=== PATIENT | female | born 1960 | race Caucasian/White ===

== ENCOUNTER 2019-07-29 23:05 | Emergency (ER) | payer BC ==
--- OUTSIDE RECORDS SUMMARY | 2019-07-29 23:09 | XMS REPORT ---
:1960 Author Organization [facility] Address [address] [place] [address] Care Team Providers Name Role Phone Unavailable Unavailable Unavailable Payers Payer Name Policy Type Policy Number Effective Date Expiration Date Problems This patient has no known problems. Allergies, Adverse Reactions, Alerts Allergy Name Allergy Status Severity Reaction(s) Onset Inactive Treating Comments Type Date Date Clinician clavulanic DA Active RI 2019-04 00:00:0 0 amoxicillin DA Active RI 2019-04 00:00:0 0 clavulanic DA Active 2018-12 00:00:0 0 amoxicillin DA Active 2018-12 00:00:0 0 clavulanic DA Active RI 2018-08 00:00:0 0 amoxicillin DA Active RI 2018-08 00:00:0 0 clavulanic DA Active RI 2018-05 00:00:0 0 amoxicillin DA Active RI 2018-05 00:00:0 0 clavulanic DA Active RI 2018-04 00:00:0 0 amoxicillin DA Active RI 2018-04 00:00:0 0 clavulanic DA Active RI 2018-01 00:00:0 0 amoxicillin DA Active RI 2018-01 00:00:0 0 AUGMENTIN DA Active U 2003-10 00:00:0 0 No Known DA Active U 2003-10 Contrast Allergies 00:00:0 0 No Known Food DA Active U 2003-10 Allergies - 00:00:0 0 No Known DA Active U 2003-10 Other -22 Allergies 00:00:0 0 clavulanic DA Active U 2002-07 acid 00:00:0 0 amoxicillin DA Active U 2002-07 00:00:0 0 Medications This patient has no known medications. Results Test Description Test Time Test Comments Text Results Atomic Results Result Comments - XR FLUORO FOR SPINE 2019-05-12 11:01:00 Patient Name: MARCO A HANKINS INJ Unit No: [id number] EXAMS: CPT CODE: [id number] XR FLUORO FOR SPINE INJ 21145 LUMBAR TRANSFORAMINAL INJECTION REFERRING PHYSICIAN: PREOPERATIVE DIAGNOSIS: Degenerative Lumbar Disc Disease. POSTOPERATIVE DIAGNOSIS: Lumbar radiculopathy PROCEDURES PERFORMED 1. Fluoroscopically guided needle localization of the bilateral L4, bilateral L5, bilateral S1 spinal nerve/nerves with transforaminal epidural steroid injection/injections. 2. Transforaminal epidurogram/epidurograms at bilateral L4, bilateral L5, bilateral S1. FINDINGS: Poor filling all. Concordant provocation left L5 hip. Pain relief-100%. ANTIBIOTIC: Cefazolin ESTIMATED BLOOD LOSS: Minimal ANESTHESIA: (TIVA )Total intravenous anesthetic (patient intolerant to sedatives and hypnotics) COMPLICATIONS: None DETAILS OF PROCEDURE: After obtaining stable vital signs, informed consent and IV access, with no known contraindications to proceeding, the patient was taken to the fluoroscopy suite and placed in a prone position with all extremities padded and appropriate monitors placed. A sterile prep and drape was performed over the lumbosacral spine. Using fluoroscopic visualization at each level the insertion site was marked for a paravertebral approach to the foramen. Using standard technique, a 25 gauge needle was advanced to the base of the pedicle. In AP view, final positioning was obtained outside the 6 on the clock position on the pedicle. Then, 1 ml of Isovue-300 contrast was injected to produce the epidurograms. No paresthesias were elicited with needle insertion or injection and there were no signs of intravascular or intrathecal uptake. Then, with 1 ml of 4% lidocaine and 10 mg of triamcinolone was injected incrementally with frequent negative aspirations. There were no signs of intravascular or intrathecal uptake. Each subsequent level was done using the same technique and medications. The patient's vital signs remained stable. The patient was taken to the PACU in good condition. at 1101 Reported and signed by: Oracio Boyce M.D. [facility] NAME: MARCO A HANKINS [address] [facility] PHYS: Oracio Javier MD [place] [address] : 1960 AGE: 58 SEX: F LOC: VINCENT PHONE #: [phone] EXAM DATE: 05/12/2019 STATUS: REG SD FAX #: [phone] RAD #: D/C DT PAGE 1 Signed Report (CONTINUED) Patient Name: MARCO A HANKINS Unit No: [id number] EXAMS: CPT CODE: [id number] XR FLUORO FOR SPINE INJ 68893 <Continued> CC: Technologist: Estefania Hall(R) Transcribed D/ (1101) Nai [facility] NAME: MARCO A HANKINS [address] [facility] PHYS: Oracio Javier MD [place] [address] : 1960 AGE: 58 SEX: F LOC: VINCENT PHONE #: [phone] EXAM DATE: 05/12/2019 STATUS: REG SD FAX #: [phone] RAD #: D/C DT PAGE 2 Signed Report Patient Name: MARCO A HANKINS Unit No: [id number] EXAMS: CPT CODE: [id number] XR FLUORO FOR SPINE INJ 03868 <Continued> Orig Print D/T: S: 05/12/2019 (1104) [facility] NAME: MARCO A HANKINS [address] [facility] PHYS: Oracio Javier MD [place] [address] : 1960 AGE: 58 SEX: F LOC: VINCENT PHONE #: [phone] EXAM DATE: 05/12/2019 STATUS: REG SD FAX #: [phone] RAD #: D/C DT PAGE 3 Signed Report - XR SPINE 1 V SPEC 2019-01-17 11:45:00 Patient Name: MARCO A HANKINS LEVEL Unit No: [id number] EXAMS: CPT CODE: [id number] XR SPINE 1 V SPEC LEVEL 84874 INTRAOPERATIVE LATERAL CERVICAL SPINE Film 1. A screw has been placed anteriorly within C6. Film 2. Screws are present anteriorly within C6 and C7. Film 3. Again noted are screws in C6 and C7. Film 4. Anterior fusion has been performed from C5 to C7. at 1145 Reported and signed by: Feliz Jose MD CC: Abdirizak Valadez M.D. Technologist: TERE BUCIO RT(R) Transcribed D/ (3799) Rachele [facility] NAME: MARCO A HANKINS [address] [facility] PHYS: Lc Sharma MD : 1960 AGE: 58 SEX: F [place] [address] LOC: Y.319 A PHONE #: [phone] EXAM DATE: 01/16/2019 STATUS: REG [facility] FAX #: [phone] RAD #: D/C DT PAGE 1 Signed Report Patient Name: MARCO A HANKINS Unit No: [id number] EXAMS: CPT CODE: [id number] XR SPINE 1 V SPEC LEVEL 50059 <Continued> Orig Print D/T: S: 01/17/2019 (1014) [facility] NAME: MARCO A HANKINS [address] [facility] PHYS: Lc Sharma MD : 1960 AGE: 58 SEX: F [place], [place] [address] LOC: Y.319 A PHONE #: [phone] EXAM DATE: 01/16/2019 STATUS: REG [facility] FAX #: [phone] RAD #: D/C DT PAGE 2 Signed Report - XR SPINE 1 V SPEC 2019-01-17 11:45:00 Patient Name: MARCO A HANKINS LEVEL Unit No: [id number] EXAMS: CPT CODE: [id number] XR SPINE 1 V SPEC LEVEL 77786 INTRAOPERATIVE LATERAL CERVICAL SPINE Film 1. A screw has been placed anteriorly within C6. Film 2. Screws are present anteriorly within C6 and C7. Film 3. Again noted are screws in C6 and C7. Film 4. Anterior fusion has been performed from C5 to C7. at 1145 Reported and signed by: Feliz Jose MD CC: Abdirizak Valadez M.D. Technologist: TERE BUCIO RT(R) Transcribed D/ (5422) [email or web address] [facility] NAME: MARCO A HANKINS [address] [facility] PHYS: Lc Sharma MD : 1960 AGE: 58 SEX: F [place] [address] LOC: Y.319 A PHONE #: [phone] EXAM DATE: 01/16/2019 STATUS: REG [facility] FAX #: [phone] RAD #: D/C DT PAGE 1 Signed Report Patient Name: MARCO A HANKINS Unit No: [id number] EXAMS: CPT CODE: [id number] XR SPINE 1 V SPEC LEVEL 69024 <Continued> Orig Print D/T: S: 01/17/2019 (5810) [facility] NAME: MARCO A HANKINS [address] [facility] PHYS: Lc Sharma MD : 1960 AGE: 58 SEX: F [place] [address] LOC: Y.319 A PHONE #: [phone] EXAM DATE: 01/16/2019 STATUS: REG [facility] FAX #: [phone] RAD #: D/C DT PAGE 2 Signed Report - XR SPINE 1 V SPEC 2019-01-17 11:45:00 Patient Name: MARCO A HANKINS LEVEL Unit No: [id number] EXAMS: CPT CODE: [id number] XR SPINE 1 V SPEC LEVEL 78679 INTRAOPERATIVE LATERAL CERVICAL SPINE Film 1. A screw has been placed anteriorly within C6. Film 2. Screws are present anteriorly within C6 and C7. Film 3. Again noted are screws in C6 and C7. Film 4. Anterior fusion has been performed from C5 to C7. at 1145 Reported and signed by: Feliz Jose MD CC: Abdirizak Valadez M.D. Technologist: RANDY LEMUS (RT.R) Transcribed D/ (1539) [email or web address] [facility] NAME: MARCO A HANKINS [address] [facility] PHYS: Lc Sharma MD : 1960 AGE: 58 SEX: F [place] [address] LOC: Y.[address] PHONE #: [phone] EXAM DATE: 01/16/2019 STATUS: REG [facility] FAX #: [phone] RAD #: D/C DT PAGE 1 Signed Report Patient Name: MARCO A HANKINS Unit No: [id number] EXAMS: CPT CODE: [id number] XR SPINE 1 V SPEC LEVEL 90835 <Continued> Orig Print D/T: S: 01/17/2019 (4115) [facility] NAME: MARCO A HANKINS [address] [facility] PHYS: Lc Sharma MD : 1960 AGE: 58 SEX: F [place] [address] LOC: Y.319 [address] PHONE #: [phone] EXAM DATE: 01/16/2019 STATUS: REG [facility] FAX #: [phone] RAD #: D/C DT PAGE 2 Signed Report - XR SPINE 1 V SPEC 2019-01-17 11:45:00 Patient Name: MARCO A HANKINS LEVEL Unit No: [id number] EXAMS: CPT CODE: [id number] XR SPINE 1 V SPEC LEVEL 85383 INTRAOPERATIVE LATERAL CERVICAL SPINE Film 1. A screw has been placed anteriorly within C6. Film 2. Screws are present anteriorly within C6 and C7. Film 3. Again noted are screws in C6 and C7. Film 4. Anterior fusion has been performed from C5 to C7. at 1145 Reported and signed by: Feliz Jose MD CC: Abdirizak Valadez M.D. Technologist: RANDY LEMUS (RT.R) Transcribed D/ (4828) Rachele [facility] NAME: MARCO A HANKINS [address] [facility] PHYS: Lc Sharma MD : 1960 AGE: 58 SEX: F [place] [address] LOC: Y.319 [address] PHONE #: [phone] EXAM DATE: 01/16/2019 STATUS: REG [facility] FAX #: [phone] RAD #: D/C DT PAGE 1 Signed Report Patient Name: MARCO A HANKINS Unit No: [id number] EXAMS: CPT CODE: [id number] XR SPINE 1 V SPEC LEVEL 35122 <Continued> Orig Print D/T: S: 01/17/2019 (2515) [facility] NAME: MARCO A HANKINS [address] [facility] PHYS: Lc Sharma MD : 1960 AGE: 58 SEX: F [place] [address] LOC: Y.319 A PHONE #: [phone] EXAM DATE: 01/16/2019 STATUS: REG [facility] FAX #: [phone] RAD #: D/C DT PAGE 2 Signed Report BASIC METABOLIC PANEL 2019-01-17 06:30:00 Test Item Value Reference Range Comments SODIUM (test code=NA) 139 mmol/L 136-145 POTASSIUM (test code=K) 4.8 mmol/L 3.5-5.1 CHLORIDE (test code=CL) 104.0 mmol/L 98-107 CARBON DIOXIDE (test code=CO2) 26.7 mmol/L 21-32 GLUCOSE (test code=GLU) 138 mg/dL 70-110 BLOOD UREA NITROGEN (test 14 mg/dL 7-18 code=BUN) GLOMERULAR FILTRATION RATE (test 67.3 >60 Unit of measure: mL/min/1.73 code=GFR) [id number] Range:Healthy Adults >90 mL/min/1.73 m2 For Chronic Kidney Disease: Stage II Mild Decrease in GFR 60-90 Stage III Moderate Decrease in GFR 30-59 Stage IV Severe Decrease in GFR 15-29 Stage V Kidney Failure <15 CREATININE (test code=CREAT) 0.86 mg/dL 0.55-1.30 CALCIUM (test code=CA) 8.5 mg/dL 8.2-10.1 BASIC METABOLIC [id number] 13:17:00 Test Item Value Reference Range Comments SODIUM (test code=NA) 139 mmol/L 136-145 POTASSIUM (test code=K) 4.7 mmol/L 3.5-5.1 CHLORIDE (test code=CL) 102.0 mmol/L 98-107 CARBON DIOXIDE (test 28.9 mmol/L 21-32 code=CO2) GLUCOSE (test code=GLU) 93 mg/dL 70-110 BLOOD UREA NITROGEN (test 22 mg/dL 7-18 code=BUN) GLOMERULAR FILTRATION RATE 55.3 >60 Unit of measure: (test code=GFR) mL/min/1.73 [id number] Range:Healthy Adults >90 mL/min/1.73 m2 For Chronic Kidney Disease: Stage II Mild Decrease in GFR 60-90 Stage III Moderate Decrease in GFR 30-59 Stage IV Severe Decrease in GFR 15-29 Stage V Kidney Failure <15 CREATININE (test code=CREAT) 1.02 mg/dL 0.55-1.30 CALCIUM (test code=CA) 8.9 mg/dL 8.2-10.1 URINALYSIS [id number] 13:16:00 Test Item Value Reference Range Comments UA COLOR (test code=COLU) YELLOW YELLOW UA APPEARANCE (test code=APPU) CLEAR CLEAR UA GLUCOSE DIPSTICK (test code=DGLUU) NEGATIVE NEGATIVE UA BILIRUBIN DIPSTICK (test code=BILU) NEGATIVE NEGATIVE UA KETONE DIPSTICK (test code=KETU) NEGATIVE mg/dL NEG UA SPECIFIC GRAVITY (test code=SGU) 1.010 1.003-1.035 UA BLOOD DIPSTICK (test code=MELANIA) TRACE NEGATIVE UA PH DIPSTICK (test code=KRISTIN) 5.5 >6.5 UA PROTEIN DIPSTICK (test code=PROU) NEGATIVE mg/dL NEG UA UROBILINIOGEN DIPSTICK (test code=URO) 0.2 mg/dL NORM UA NITRITE DIPSTICK (test code=GUNJAN) NEGATIVE NEG UA LEUKOCYTE ESTERASE DIPSTICK (test NEGATIVE NEGATIVE code=LEUU) UA WBC (test code=WBCU) <5 /HPF 0-2 UA RBC (test code=RBCU) 1-2 /HPF 0-2 UA EPITHELIAL CELLS (test code=EPIU) 2-5 /HPF 0-2 UA BACTERIA (test code=BACU) FEW /HPF NONE UA MUCUS (test code=MUCU) 2+ /LPF NONE SEEN CBC W/AUTO [id number] 13:10:00 Test Item Value Reference Range Comments WHITE BLOOD CELL (test code=WBC) 5.3 K/mm3 5.8-11.0 RED BLOOD CELL (test code=RBC) 4.76 M/mm3 4.2-5.4 HEMOGLOBIN (test code=HGB) 15.1 g/dL 12-16 HEMATOCRIT (test code=HCT) 44.9 % 37-47 MEAN CELL VOLUME (test code=MCV) 94 fL 80-98 MEAN CELL HGB (test code=MCH) 31.7 pg 27-34 MEAN CELL HGB CONCENTRATION (test code=MCHC) 33.6 g/dL 30.8-34.1 RED CELL DISTRIBUTION WIDTH (test code=RDW) 11.9 % 11-16 PLT (test code=PLT) 239 K/mm3 130-400 MEAN PLATELET VOLUME (test code=MPV) 9.8 fL 8.9-12.1 NEUTROPHIL % (test code=NT%) 65.5 % 45-70 LYMPHOCYTE % (test code=LY%) 25.9 % 20-40 MONOCYTE % (test code=MO%) 7.0 % 3-10 EOSINOPHIL % (test code=EO%) 0.4 % 1-5 BASOPHIL % (test code=BA%) 1.0 % 0.0-1.1 NEUTROPHIL # (test code=NT#) 3.45 K/mm3 2.00-7.50 LYMPHOCYTE # (test code=LY#) 1.36 K/mm3 1.50-4.00 MONOCYTE # (test code=MO#) 0.37 K/mm3 0.2-0.8 EOSINOPHIL # (test code=EO#) 0.02 K/mm3 0.04-0.4 BASOPHIL # (test code=BA#) 0.05 K/mm3 0.02-0.10 MANUAL DIFF REQUIRED (test code=MDIFF) NO MANUAL DIFF NUCLEATED RED BLOOD CELL (test code=NRBC) 0 % 0-0 - XR FLUORO FOR SPINE [id number] 17:36:00 Patient Name: MARCO A HANKINS Unit No: [id number] EXAMS: CPT CODE: [id number] XR FLUORO FOR SPINE INJ 39516 CERVICAL TRANSFORAMINAL INJECTION REFERRING PHYSICIAN: PREOPERATIVE DIAGNOSIS: Cervical radiculitis POSTOPERATIVE DIAGNOSIS: Bilateral cervical radiculopathy PROCEDURES PERFORMED: Fluoroscopically guided needle localization of the bilateral C6, bilateral C7 spinal nerves with transforaminal epiduralsteroid injection/injections. 2. Transforaminal epidurogram/epidurograms at bilateral C6, bilateral C7 FINDINGS: Poor filling all. Concordant provocation bilateral C6 shoulders. Pain relief-100%. ANTIBIOTICS:Cefazolin ESTIMATED BLOOD LOSS: Minimal ANESTHESIA: (TIVA ) Total intravenous anesthetic (patientintolerant to sedatives and hypnotics) COMPLICATIONS: None DETAILSOF PROCEDURE: After obtaining stable vital signs, informed consent and IV access, with no known contraindications to proceeding, the patient was taken to the fluoroscopy suite and placed mack supine position with all extremities padded and appropriate monitors placed. A sterileprep and drape was performed over the cervical spine. Using fluoroscopic visualizationat each level the insertion site was marked for a paravertebral approach to the foramen. Usingstandard technique, a 27gauge needle was advanced to the base of the pedicle. In AP view, final positioning was obtained outside the 6 on a clock position on the pedicle. Then, 0.5 mlof Isovue-300 contrast was injected to produce the epidurograms. No paresthesias were elicited with needle insertion or injection and there were no signs of intravascular or intrathecal uptake. Then, 0.5 ml of 4% lidocaine was injected as a test dose with no signs of intravascular or intrathecal uptake. Next, 10 mg of Decadron was injected incrementally with frequent negative aspirations.Each subsequent cervical nerve root sleeve was done with the same technique and medications were used.There were no signs of intravascular or intrathecal uptake. The patient's vital signs remained stable. The patient was taken to the PACU in good condition. [facility] NAME: MARCO A HANKINS [address] [facility] PHYS: DOCUD - Doctor,Oracio Yousif MD [place], [place] [address] : 1960 AGE: 58 SEX: F LOC: VINCENT PHONE #: [phone] EXAM DATE: STATUS: REG [facility] FAX #: [phone] RAD #: D/C DT PAGE 1 SignedReport (CONTINUED) Patient Name: MARCO A HANKINS Unit No: [id number] EXAMS: CPT CODE : [id number] XR FLUORO FOR SPINE INJ 57237 <Continued> Electronically Signed by Arin Boyce on 2018 at 1736 Reported and signed by: Oracio Boyce M.D. CC: Oracio Boyce MD Technologist: TERE BUCIO RT(R) Transcribed D/ (3621) Nai [facility] NAME: MARCO A HANKINS [address] [facility] PHYS: Oracio Javier MD [place] [address] : 1960 AGE: 58 SEX: F LOC: VINCENT PHONE #: [phone] EXAM DATE: 10/25/2018 STATUS: REG [facility] FAX #: RAD #: D/C DT PAGE 2 Signed Report Patient Name: MARCO A HANKINS Unit No: [id number] EXAMS: CPT CODE: [id number] XR FLUORO FOR SPINE INJ 63515 <Continued> OrigPrint D/T: S: 10/25/2018 ( 9343) [facility] NAME: MARCO A HANKINS [address] [facility] PHYS: Oracio Javier MD [place], [place] [address] : 1960 AGE: 58 SEX: F LOC: JacquelinePAIPHONE #: [phone] EXAM DATE: 10/25/2018 STATUS: REG [facility] FAX #: [phone] RAD #: D/C DT PAGE 3 Signed Report- XR FLUORO FOR SPINE [id number] 13:01:00 Patient Name: MARCO A HANKINS Unit No: [id number] EXAMS: CPT CODE: [id number] XR FLUORO FOR SPINE INJ 76809 CERVICAL TRANSFORAMINAL INJECTION REFERRING PHYSICIAN:PREOPERATIVE DIAGNOSIS: Cervical radiculitis POSTOPERATIVE DIAGNOSIS: Bilateral C6, bilateral C7 PROCEDURES PERFORMED: Fluoroscopically guided needle localization of the bilateral C6, bilateral C7 spinal nerves with transforaminal epidural steroid injection/injections. 2. Transforaminal epidurogram/epidurograms at bilateral C6, bilateral C7 FINDINGS: Poor filling all. Concordant provocation bilateral C7 shoulders. Pain relief-100%. ANTIBIOTICS:Cefazolin ESTIMATED BLOOD LOSS: Minimal ANESTHESIA: (TIVA ) Total intravenous anesthetic (patient intolerant to sedatives and hypnotics) COMPLICATIONS: None DETAILS OF PROCEDURE: After obtaining stable vital signs, informed consent and IV access, with no known contraindications to proceeding, the patient was taken to the fluoroscopy suite and placed in a supine position with all extremities padded and appropriate monitors placed. A sterile prep and drape was performed over the cervical spine. Using fluoroscopic visualization at each level the insertion site was marked for a paravertebral approach to the foramen. Using standard technique, a 27gauge needle was advanced to the base of the pedicle. In AP view, final positioning was obtained outside the 6 on a clock position on the pedicle. Then, 0.5 ml of Isovue-300 contrast was injected to produce the epidurograms. No paresthesias were elicitedwith needle insertion or injection and there were no signs of intravascular or intrathecal uptake. Then, 0.5 ml of 4% lidocaine was injected as a test dose with no signs of intravascular orintrathecal uptake. Next, 10 mg of Decadron was injected incrementally with frequent negative aspirations.Each subsequent cervical nerve root sleeve was done with the same technique and medications were used.There were no signs of intravascular or intrathecal uptake. The patient's vital signs remained stable. The patient was taken to the PACU in good condition. [facility] NAME: MARCO A HANKINS [address] [facility] PHYS: DOCUD - Doctor,Oracio Yousif MD [place], [place] [address] : 1960 AGE: 57 SEX: F LOC: Y.SERENITY PHONE #: [phone] EXAM DATE: STATUS: REG [facility] FAX #: [phone] RAD #: D/C DT PAGE 1 Signed Report (CONTINUED) Patient Name: MARCO A HANKINS Unit No: [id number] EXAMS: CPT CODE: [id number] XR FLUORO FOR SPINE INJ 30459 & lt;Continued> Electronically Signed by Arin Boyce on 2018 at 1301 Reported and signed by: Oracio Boyce M.D. CC: Oracio Boyce MD Technologist: MARILIA UIRBE RT(R) Transcribed D/ (1301) Lore[address] [facility] NAME: MARCO A HANKINS [address] [facility] PHYS: Oracio Javier MD [place] [address] : 1960 AGE: 57 SEX: F LOC: VINCENT PHONE #: [phone] EXAM DATE: 09/19/2018 STATUS: [facility] FAX #: [phone] RAD #: D/C DT PAGE 2 Signed Report Patient Name: MARCO A HANKINS Unit No: [id number] EXAMS: CPT CODE: [id number] XR FLUORO FOR SPINE INJ 24174 <Continued> Orig PrintD/T: S: 09/19/2018 (0624) [facility] NAME: MARCO A HANKINS [address] [facility] PHYS: Oracio Javier MD [place] [address] : 1960 AGE: 57 SEX: F LOC: VINCENT PHONE#: [phone] EXAM DATE: STATUS: [facility] FAX #: [phone] RAD #: D/C DT PAGE 3 Signed Report- CHEST 2 [id number] 00:00:00 Patient Name: MARCO A HANKINS Unit No: [id number] EXAMS: CPT CODE: [id number] CHEST 2 VIEWS CLINICAL HISTORY: Preoperative chest. FINDINGS: No acute pulmonary abnormalityis seen. The heart and mediastinal contour is within normal limits. " Manually signed by Dwight Schafer M.D. Reported and signed by: Dwight Schafer M.D. CC: Felix Goel MD Technologist: Saumya Marquez Trnscrbd D/ (1540) PEDRO Advanced To Signed Date/Time/User: 10/30/03 (1819) PEDRO Orig Print D/T: (1610) S: 10/30/2003 (1819) [facility] NAME: MARCO A HANKINS Radiology Department PHYS: Felix Blanco MD [address] : 1960 AGE: 43 SEX: F [place], [place] [address] LOC: UNK PHONE #: [phone] EXAM DATE: 2003 STATUS: UNK FAX #: [phone] RAD NO: [id number] Page 1 Signed Report
[2019-07-30] MEDS ORDERED: HYDROMORPHONE HCL 2 MG/ML inj ONE ×2 (00:04→05:05)
[2019-07-30] MEDS ORDERED: KETOROLAC 30 MG/ML INJ ONE (00:04)
[2019-07-30] MEDS ORDERED: ONDANSETRON 4 MG/2 ML VIAL ONE (00:05)
[2019-07-30 00:36] LABS: Absolute Lymphocytes (CBC) 0.5 K/uL (0.7-4.9); Basophils % 0.1 % (0-1.3); Hematocrit 41.6 % (36.0-45.0); Lymphocytes % 7.8 % (15.3-44.8); MPV 8.4 fL (7.6-11.3); RBC Red Blood Cell Count 4.37 M/uL (3.86-4.86)
[2019-07-30 00:50] LABS: Albumin 3.9 g/dL (3.4-5.0); Bilirubin Direct 0.1 mg/dL (0-0.2); Bilirubin Total 0.5 mg/dL (0.2-1.0); Potassium 4.6 mmol/L (3.5-5.1); Protein, Total 7.2 g/dL (6.4-8.2)
[2019-07-30 01:33] LABS: Blood Morphology Comment NOT SEEN (NOT SEEN); Platelet Estimate ADEQ
[2019-07-30 01:35] LABS: Urine Blood 2+ (NEG); Urine Glucose NEGATIVE (NEG); Urine Protein NEGATIVE (NEG)
[2019-07-30 01:42] LABS: Urine Bacteria <20 /HPF (<20); Urine Culture Reflex Order NOT NEEDED; Urine RBC <5 /HPF (NONE SEEN)
[2019-07-30] MEDS ORDERED: LORazepam 2 MG/ML VIAL ONE (01:58)
--- NOTE | 2019-07-30 05:21 | ER ---
Nurse's Notes [facility] Name: Sasha Yancey Age: 58 yrs Sex: Female : 1960 Arrival Date: 07/29/2019 Time: 23:06 Bed 18 Private MD: Diagnosis: severe lower back pain post surgery Presentation: 07/29 23:10 Presenting complaint: EMS states: Pt had Hx of Conjoined L5 S1 and fusion. Pt had DRG wh implant done today at [facility]. Pt C/O severe back and leg pain. Transition of care: patient was not received from another setting of care. Onset of symptoms was July 29, 2019. Risk Assessment: Do you want to hurt yourself or someone else? Patient reports no desire to harm self or others. Initial Sepsis Screen: Does the patient meet any 2 criteria? HR > 90 bpm. Does the patient have a suspected source of infection? No. Patient's initial sepsis screen is negative. Care prior to arrival: None. 23:10 Method Of Arrival: EMS: [facility] 23:10 Acuity: SHARON 3 wh Historical: - Allergies: 23:46 Augmentin; wh - PMHx: 23:46 Conjoined L5 S1; UTI; CKD; - PSHx: 23:46 Hysterectomy; HemiLaminectomy; Pelvic Floor Collapse; wh - Immunization history:: Adult Immunizations up to date. - Social history:: Smoking status: Patient/guardian denies using tobacco. - Ebola Screening: : Patient negative for fever greater than or equal to 101.5 degrees Fahrenheit, and additional compatible Ebola Virus Disease symptoms Patient denies exposure to infectious person. - Family history:: not pertinent. - Hospitalizations: : No recent hospitalization is reported. Screenin:41 Abuse screen: Denies threats or abuse. Denies injuries from another. Nutritional wh screening: No deficits noted. Tuberculosis screening: No symptoms or risk factors identified. Fall Risk None identified. Assessment: 23:30 General: Appears in no apparent distress. uncomfortable, Behavior is crying. Pain: wh Complains of pain in buttocks Pain radiates to right leg and left leg Pain currently is 10 out of 10 on a pain scale. Quality of pain is described as pinching, Pain began 1 day ago. Neuro: Level of Consciousness is awake, alert, obeys commands, Oriented to person, place, time, situation, Appropriate for age. Cardiovascular: Heart tones S1 S2. Respiratory: Airway is patent Respiratory effort is even, unlabored, Respiratory pattern is regular, symmetrical, Breath sounds are clear bilaterally. GI: Abdomen is flat, non-distended, Bowel sounds present X 4 quads. Abd is soft and non tender X 4 quads. : Reports inability to void. EENT: No signs and/or symptoms were reported regarding the EENT system. Derm: Skin is intact, is healthy with good turgor, Skin is pink, warm \T\ dry. normal. Musculoskeletal: Circulation, motion, and sensation intact. 07/30 00:54 Reassessment: Patient appears in no apparent distress at this time. No changes from previously documented assessment. Patient and/or family updated on plan of care and expected duration. Pain level reassessed. Patient is alert, oriented x 3, equal unlabored respirations, skin warm/dry/pink. 01:52 Reassessment: Patient appears in no apparent distress at this time. No changes from wh previously documented assessment. Patient and/or family updated on plan of care and expected duration. Pain level reassessed. Patient is alert, oriented x 3, equal unlabored respirations, skin warm/dry/pink. 03:20 Reassessment: Patient appears in no apparent distress at this time. No changes from wh previously documented assessment. Patient and/or family updated on plan of care and expected duration. Pain level reassessed. Patient is alert, oriented x 3, equal unlabored respirations, skin warm/dry/pink. Patient states feeling better. Patient states symptoms have improved. 04:40 Reassessment: Patient appears in no apparent distress at this time. No changes from wh previously documented assessment. Patient and/or family updated on plan of care and expected duration. Pain level reassessed. Patient is alert, oriented x 3, equal unlabored respirations, skin warm/dry/pink. MD at bedside explaining POC Patient states feeling better. Patient states symptoms have improved. 05:46 Reassessment: Patient appears in no apparent distress at this time. No changes from previously documented assessment. Patient and/or family updated on plan of care and expected duration. Pain level reassessed. Patient is alert, oriented x 3, equal unlabored respirations, skin warm/dry/pink. Patient denies pain at this time. Patient states feeling better. Patient states symptoms have improved. Vital Signs: 07/29 23:10 BP 142 / 82; Pulse 112; Resp 20; Temp 99.2; Pulse Ox 100% ; Weight 87.09 kg; Height 5 wh ft. 10 in. (177.80 cm); Pain 05/29; 07/30 00:00 BP 134 / 69; Pulse 109; Resp 18; Pulse Ox 99% ; 00:59 BP 93 / 41; Pulse 59; Resp 16; Pulse Ox 100% ; 01:52 BP 102 / 83; Pulse 54; Resp 16; Pulse Ox 100% on R/A; 03:15 BP 90 / 43; Pulse 52; Resp 16; Pulse Ox 100% on R/A; 04:30 BP 93 / 46; Pulse 67; Resp 18; Pulse Ox 99% ; 05:48 BP 100 / 53; Pulse 62; Resp 18; Pulse Ox 99% on R/A; 07/29 23:10 Body Mass Index 27.55 (87.09 kg, 177.80 cm) ED Course: 07/29 23:06 Patient arrived in ED. ds1 23:30 Marie cath inserted, using sterile technique, 16 Fr., by tn, balloon inflated, to gravity drainage, urine specimen collected. returned clear yellow urine. Patient tolerated well. 23:38 Nidhi Barney is Primary Nurse. 23:40 Triage completed. 23:46 Patient has correct armband on for positive identification. Placed in gown. Bed in low wh position. Call light in reach. Side rails up X 1. Pulse ox on. NIBP on. 23:46 Arm band placed on. 23:47 Devang Crowder MD is Attending Physician. mo 07/30 05:46 No provider procedures requiring assistance completed. IV discontinued, intact, bleeding controlled, No redness/swelling at site. Administered Medications: 00:08 Drug: Dilaudid 2 mg Route: IVP; Site: right antecubital; 00:54 Follow up: Response: No adverse reaction; Pain is decreased; RASS: Alert and Calm (0) 00:10 Drug: TORadol 30 mg Route: IVP; Site: right antecubital; 00:54 Follow up: Response: No adverse reaction; Pain is decreased 00:12 Drug: Zofran 4 mg Route: IVP; Site: right antecubital; 00:54 Follow up: Response: No adverse reaction 02:04 Drug: Ativan 1 mg Route: IVP; Site: right antecubital; 04:58 Follow up: Response: No adverse reaction; Pain is decreased; RASS: Alert and Calm (0) 05:14 Drug: Dilaudid 1 mg Route: IVP; Site: right antecubital; 05:47 Follow up: Response: No adverse reaction; Pain is decreased; RASS: Alert and Calm (0) Outcome: 05:20 Discharge ordered by . mo 05:46 Discharged to home via wheelchair, with family. 05:46 Condition: stable 05:46 Discharge instructions given to patient, family, Pt requested to go home with marie catheter, instructed Pt need to see PCP for follow up regarding removal of catheter Instructed on discharge instructions, follow up and referral plans. POC Demonstrated understanding of instructions, follow-up care, POC 05:48 Patient left the ED. Signatures: Yris Ac dsNidhi Corral Devang Crowder MD MD mo Corrections: (The following items were deleted from the chart) 19:15 05:46 Discharge instructions given to patient, family, Instructed on discharge instructions, follow up and referral plans. POC Demonstrated understanding of instructions, follow-up care, POC
--- NOTE | 2019-07-30 05:21 | EDPHYS ---
Physician Documentation [facility] Name: Sasha Yancey Age: 58 yrs Sex: Female : 1960 Arrival Date: 07/29/2019 Time: 23:06 Bed 18 Private MD: ED Physician Devang Crowder HPI: 07/30 18:38 This 58 yrs old Female presents to ER via EMS with complaints of Post wa Surgical Pain. 18:38 The patient presents with pain pt s/p stimulator placement in her lower back for nerve wa stimulation today. states here for pain control as po meds not working well for her at home. denies any other complaints otherwise. states her surgeon advised her to come in for pain control. The symptoms are located in the low back. The pain does not radiate. Onset: The symptoms/episode began/occurred today. Modifying factors: The patient symptoms are alleviated by nothing, the patient symptoms are aggravated by any movement. Associated signs and symptoms: The patient has no apparent associated signs or symptoms. Severity of symptoms: At their worst the symptoms were severe, in the emergency department the symptoms are unchanged. h/o chronic back pain. The patient has been recently seen by a physician: her surgeon. Historical: - Allergies: 07/29 23:46 Augmentin; wh - PMHx: 23:46 Conjoined L5 S1; UTI; CKD; wh - PSHx: 23:46 Hysterectomy; HemiLaminectomy; Pelvic Floor Collapse; wh - Immunization history:: Adult Immunizations up to date. - Social history:: Smoking status: Patient/guardian denies using tobacco. - Ebola Screening: : Patient negative for fever greater than or equal to 101.5 degrees Fahrenheit, and additional compatible Ebola Virus Disease symptoms Patient denies exposure to infectious person. - Family history:: not pertinent. - Hospitalizations: : No recent hospitalization is reported. ROS: 07/30 19:02 Constitutional: Negative for fever, chills, and weight loss, Eyes: Negative for injury, wa pain, redness, and discharge, ENT: Negative for injury, pain, and discharge, Neck: Negative for injury, pain, and swelling, Cardiovascular: Negative for chest pain, palpitations, and edema, Respiratory: Negative for shortness of breath, cough, wheezing, and pleuritic chest pain, Abdomen/GI: Negative for abdominal pain, nausea, vomiting, diarrhea, and constipation, : Negative for injury, bleeding, discharge, and swelling, MS/Extremity: Negative for injury and deformity, Skin: Negative for injury, rash, and discoloration, Neuro: Negative for headache, weakness, numbness, tingling, and seizure, Psych: Negative for depression, anxiety, suicide ideation, homicidal ideation, and hallucinations. Back: Positive for pain at rest, pain with movement, of the lumbar area, sacrum, left low back and right low back. Exam: 19:03 Head/Face: Normocephalic, atraumatic. Eyes: Pupils equal round and reactive to light, wa extra-ocular motions intact. Lids and lashes normal. Conjunctiva and sclera are non-icteric and not injected. Cornea within normal limits. Periorbital areas with no swelling, redness, or edema. ENT: Nares patent. No nasal discharge, no septal abnormalities noted. Tympanic membranes are normal and external auditory canals are clear. Oropharynx with no redness, swelling, or masses, exudates, or evidence of obstruction, uvula midline. Mucous membranes moist. Neck: Trachea midline, no thyromegaly or masses palpated, and no cervical lymphadenopathy. Supple, full range of motion without nuchal rigidity, or vertebral point tenderness. No Meningismus. Chest/axilla: Normal chest wall appearance and motion. Nontender with no deformity. No lesions are appreciated. Cardiovascular: Regular rate and rhythm with a normal S1 and S2. No gallops, murmurs, or rubs. Normal PMI, no JVD. No pulse deficits. Respiratory: Lungs have equal breath sounds bilaterally, clear to auscultation and percussion. No rales, rhonchi or wheezes noted. No increased work of breathing, no retractions or nasal flaring. Abdomen/GI: Soft, non-tender, with normal bowel sounds. No distension or tympany. No guarding or rebound. No evidence of tenderness throughout. Skin: Warm, dry with normal turgor. Normal color with no rashes, no lesions, and no evidence of cellulitis. MS/ Extremity: Pulses equal, no cyanosis. Neurovascular intact. Full, normal range of motion. Neuro: Awake and alert, GCS 15, oriented to person, place, time, and situation. Cranial nerves II-XII grossly intact. Motor strength 5/5 in all extremities. Sensory grossly intact. Cerebellar exam normal. Normal gait. Psych: Awake, alert, with orientation to person, place and time. Behavior, mood, and affect are within normal limits. 19:03 Constitutional: The patient appears anxious, due to pain 19:03 Back: pain, that is severe, of the lumbar area, sacrum, left low back and right low back. Vital Signs: 07/29 23:10 BP 142 / 82; Pulse 112; Resp 20; Temp 99.2; Pulse Ox 100% ; Weight 87.09 kg; Height 5 wh ft. 10 in. (177.80 cm); Pain 05/29; 07/30 00:00 BP 134 / 69; Pulse 109; Resp 18; Pulse Ox 99% ; 00:59 BP 93 / 41; Pulse 59; Resp 16; Pulse Ox 100% ; 01:52 BP 102 / 83; Pulse 54; Resp 16; Pulse Ox 100% on R/A; 03:15 BP 90 / 43; Pulse 52; Resp 16; Pulse Ox 100% on R/A; 04:30 BP 93 / 46; Pulse 67; Resp 18; Pulse Ox 99% ; 05:48 BP 100 / 53; Pulse 62; Resp 18; Pulse Ox 99% on R/A; 07/29 23:10 Body Mass Index 27.55 (87.09 kg, 177.80 cm) MDM: 07/29 23:47 Patient medically screened. ks 07/30 19:05 Differential diagnosis: pt s/p stimulator placement. on multiple opiate meds at home ks for pain. will treat pain with IV meds. obs , and reassess. Data reviewed: vital signs, nurses notes. Test interpretation: by ED physician or midlevel provider: plain radiologic studies, labs noted wnl. . Response to treatment: the patient's symptoms have markedly improved after treatment. ED course: pain improved significantly. pt taken home by spouse to f/u with her surgeon in the AM. of note there were no concerns witht he stimulator itself requiring evaluation. It actually had not been turned on as yet. no hematoma or concerns for infection noted on exam. 07/29 23:55 Order name: Urine Microscopic Only; Complete Time: :55 ks 07/29 23:55 Order name: CBC with Diff; Complete Time: :55 ks 07/29 23:55 Order name: Basic Metabolic Panel; Complete Time: : ks 07/29 23:55 Order name: Hepatic Function; Complete Time: ks 07/30 00:05 Order name: Urine Dipstick--Ancillary (enter results); Complete Time: [facility] 07/30 00:43 Order name: Manual Differential; Complete Time: : [facility] 07/29 23:55 Order name: IV Start; Complete Time: ks 07/29 23:55 Order name: Urine Dipstick-Ancillary (obtain specimen); Complete Time: 00: ks Administered Medications: 00:08 Drug: Dilaudid 2 mg Route: IVP; Site: right antecubital; 00:54 Follow up: Response: No adverse reaction; Pain is decreased; RASS: Alert and Calm (0) 00:10 Drug: TORadol 30 mg Route: IVP; Site: right antecubital; 00:54 Follow up: Response: No adverse reaction; Pain is decreased 00:12 Drug: Zofran 4 mg Route: IVP; Site: right antecubital; 00:54 Follow up: Response: No adverse reaction 02:04 Drug: Ativan 1 mg Route: IVP; Site: right antecubital; 04:58 Follow up: Response: No adverse reaction; Pain is decreased; RASS: Alert and Calm (0) 05:14 Drug: Dilaudid 1 mg Route: IVP; Site: right antecubital; 05:47 Follow up: Response: No adverse reaction; Pain is decreased; RASS: Alert and Calm (0) Disposition: 07/30/19 05:20 Discharged to Home. Impression: severe lower back pain post surgery. - Condition is Stable. - Discharge Instructions: Back Pain, Adult, [id number]. - Medication Reconciliation Form, Thank You Letter, Antibiotic Education, Prescription Opioid Use form. - Follow up: Private Physician; When: 1 - 2 days; Reason: Recheck today's complaints. - Problem is new. - Symptoms have improved. - Notes: take your medication as prescribed by your doctor. see your doctor for reassessment within the next 24 hours Signatures: Dispatcher [employer] Nidhi Newell Devang Crowder MD MD vikki Corrections: (The following items were deleted from the chart) 05:48 05:20 07/30/2019 05:20 Discharged to Home. Impression: severe lower back pain post wh surgery. Condition is Stable. Forms are Medication Reconciliation Form, Thank You Letter, Antibiotic Education, Prescription Opioid Use. Follow up: Private Physician; When: 1 - 2 days; Reason: Recheck today's complaints. Problem is new. Symptoms have improved. wa
[2019-07-30 05:55] VITALS: TEMP 99.2
[2019-07-30 06:04] VITALS: O2SAT 99
[2019-07-30 06:05] VITALS: BP 100/53
== END 2019-07-30 05:48 | disposition home or self-care (01) ==
LOC: ER 23:05
DX: G89.18 Other acute postprocedural pain (principal); N18.9 Chronic kidney disease, unspecified
CPT/HCPCS: 85025; 80048; 36415; 80076; 81003; 81015; 51702; 96375; 96374; 99284; J1170 ×2; J2405